=== PATIENT | female | born 1965 | race American Indian/Alaskan Native ===

== ENCOUNTER 2016-12-25 15:04 | Emergency (ER) | payer OTHER ==
[2016-12-25 15:31] VITALS: BP 147/89
[2016-12-25 16:38] LABS: Basophils % (Auto) 0.4 % (0.0-1.8); Eosinophils % (Auto) 1.5 % (0.0-4.3); Hematocrit 38.2 % (30.3-42.9); Hemoglobin 11.9 gm/dl (10.1-14.3); Mean Corpuscular HGB Conc 31 % (30-34); Mean Corpuscular Hemoglobin 23 pg (28-32); Mean Corpuscular Volume 74 fl (79-97); Platelet Count 235 K/mm3 (140-440); Red Blood Count 5.15 M/mm3 (3.65-5.03); Red Cell Distribution Width 16.2 % (13.2-15.2)
[2016-12-25 16:59] LABS: Blood Urea Nitrogen 12 mg/dL (7-17); Calcium 8.9 mg/dL (8.4-10.2); Carbon Dioxide 29 mmol/L (22-30); Glucose 95 mg/dL (65-100)
[2016-12-25 17:00] LABS: Anion Gap 12 mmol/L; Potassium 4.4 mmol/L (3.6-5.0); Sodium 141 mmol/L (137-145)
--- NOTE | 2016-12-28 15:33 | ED Elopement Review ---
ED Pt Elopement review - Results review Lab results: Laboratory Tests 12/25/16 12/25/16 12/25/16 16:26 16:26 19:31 WBC 8.0 RBC 5.15 H Hgb 11.9 Hct 38.2 MCV 74 L MCH 23 L MCHC 31 RDW 16.2 H Plt Count 235 Lymph % (Auto) 18.0 Edwards % (Auto) 9.8 H Eos % (Auto) 1.5 Baso % (Auto) 0.4 Lymph # 1.4 Edwards # 0.8 Eos # 0.1 Baso # 0.0 Seg Neutrophils % 70.3 H Seg Neutrophils # 5.6 Sodium 141 Potassium 4.4 Chloride 104.0 Carbon Dioxide 29 Anion Gap 12 BUN 12 Creatinine 0.6 L Estimated GFR > 60 BUN/Creatinine Ratio 20.00 Glucose 95 Calcium 8.9 Troponin T < 0.010 < 0.010 - Call Back decision Pt Call Back Decision: No action required
== END 2016-12-25 23:18 | disposition left against medical advice (07) ==
LOC: ED 15:04
DX: R07.89 Other chest pain (principal); Z53.21 Procedure and treatment not carried out due to patient leaving prior to being seen by health care provider
CPT/HCPCS: 36415; 80048; 84484; 85025; 93005; 93010